=== PATIENT | female | born 2005 | race Caucasian/White ===

== ENCOUNTER 2024-01-05 12:59 | Day surgery (SDC) | payer OTHER, SELFPAY ==
--- NOTE | 2024-01-05 13:11 | US_ITS ---
[address] [address] Patient Name: CRISSY MICHELLE MRN: [id number] date: 2005 Sex: F Assigned Patient Location: US Current Patient Location: Accession/Order Number: [id number] Exam Date: 01/05/2024 13:50 Report Date: 01/06/2024 06:54 At the request of: ED MATOS Procedure: US biopsy thyroid EXAMINATION: US biopsy thyroid HISTORY: Thyroid Nodule COMPARISON: No relevant comparison available. TECHNIQUE: After obtaining informed consent, ultrasound-guided fine needle aspiration was performed in the usual sterile manner. FINDINGS: IMAGING: Ultrasound. BIOPSY NEEDLE: 25-gauge; 3 separate passes. LOCATION: Left lobe 2.5 cm TR 4 nodule. SPECIMEN TYPE: Cellular tissue. LOCAL ANESTHETIC: Buffered Xylocaine. COMPLICATIONS: None. LABORATORY: Prepared slide smears and washings for cell block evaluation. OTHER: Negative. PATHOLOGY: Pending. An addendum will be added when results are available. US/US biopsy thyroid IMPRESSION: 1. Uneventful ultrasound guided fine needle aspiration (FNA). 2. Pathology results are pending. Electronically authenticated by: DIAMOND ABDI Date: 01/06/2024 06:54
[2024-01-05 13:30] VITALS: BP 108/76; PULSE 108; O2SAT 94
--- NOTE | 2024-01-05 14:44 | SUR.PREOP ---
12/26/23 Pt instructed on procedure, date, time and prep.
== END 2024-01-05 14:25 | disposition home or self-care (01) ==
LOC: US 13:04
PROVIDERS: Radiology Diagnostic Radiology; PCP Physician Assistant; Visit Provider Otolaryngology
DX: E04.1 Nontoxic single thyroid nodule (principal)
CPT/HCPCS: 10005; 88173